=== PATIENT | female | born 1935 | race Asian ===

== ENCOUNTER → 2017-09-12 | Outpatient (CLI) | payer SELFPAY ==
--- NOTE | 2017-09-12 12:18 | CT ---
EXAMINATION TYPE: CT abdomen pelvis w con DATE OF EXAM: 09/12/2017 COMPARISON: NONE HISTORY: Abdominal and pelvic pain CT DLP: 547.5 mGycm Automated exposure control for dose reduction was used. CONTRAST: CT scan of the abdomen pelvis is performed with IV Contrast, patient injected with 100 ml mL of Omnip aque 300. FINDINGS- LUNG BASES-subsegmental changes at both lung bases most typical of atelectasis. Vague 6 mm nodular de nsity left lower lobe likely is postinflammatory could be followed on a short-term basis. The heart i s enlarged and there is coronary artery calcification. . Subsegmental changes along the left heart sam rder most likely related atelectasis. Correlate clinically. LIVER/GB-small hypodensity involving the liver near the dome and within the right lobe are too small to characterize and measure less than 5 mm. Larger 1.4 cm lesion in the left lobe measures 15 Hounsfi eld units. Compatible with simple cyst. Therefore, tiny lesions also likely represent simple cysts. PANCREAS- No gross abnormality is seen. SPLEEN- No gross abnormality is seen. ADRENALS- No gross abnormality is seen. KIDNEYS/BLADDER- no hydronephrosis or nephrolithiasis. There is a 7 mm hypodensity within the right k idney too small to characterize but likely related to simple cyst.. BOWEL- no bowel dilatation. Normal appendix. There is no evidence of bowel obstruction. Few promine nt small bowel loops in the upper pelvis and lower abdomen are noted without evidence of surrounding inflammatory change. May been the basis of localized ileus or enteritis. Stomach is decompressed and limited in assessment. No obvious inflammatory change. LYMPH NODES- No greater than 1cm abdominal or pelvic lymph nodes are appreciated. OSSEOUS STRUCTURES-there is a scoliotic curvature the spine with multilevel severe degenerative disc disease. Areas of sclerosis involving the vertebral column appear to be discogenic. Arthropathy of th e hips noted. OTHER- there is a soft tissue lipoma adjacent to the left iliac bone measuring 1.6 cm. Atherosclerot ic change of the vasculature noted. No evidence of aortic aneurysm. Atherosclerotic change of the lef t renal artery and splenic artery. SMA enhances normally. Fluid attenuation within the sacrum greater on the left suggestive of Tarlov cysts some endosteal scalloping of the anterior margin of the sacru m. IMPRESSION- 1. minimally prominent small bowel loops in the upper pelvis and lower abdomen centrally withou t evidence of obstruction. Findings could been the basis of a localized ileus or mild enteritis. No s ignificant inflammatory changes. 2. Multiple hepatic lesions only one of which is sizable and measures 15 Hounsfield units compatible simple cyst. 3. Nodular subpleural density left lung base most likely postinflammatory could be followed on a shor t-term basis. Measures 6 mm in greatest axis. 4. Cardiomegaly with coronary artery calcification. 5. Subsegmental consolidation left lower lobe laterally atelectasis favored over early pneumonia sarah elate clinically. 6. 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
== END | disposition home or self-care (01) ==
LOC: RADCTMAIN 11:01
PROVIDERS: ATTEND Internal Medicine Hematology & Oncology
DX: K76.89 Other specified diseases of liver (principal); R10.9 Unspecified abdominal pain
CPT/HCPCS: 74177; Q9967